=== PATIENT | female | born 1945 | race Caucasian/White ===

== ENCOUNTER 2016-06-18 07:24 | Emergency (ER) | payer MEDICARE, BC ==
[2016-06-18 07:37] VITALS: BP 127/82
--- NOTE | 2016-06-18 08:11 | UC ---
Lower Extremity/Ankle HPI - HPI Summary HPI Summary: The patient comes in today for: 1. Ellinger right foot pain: Onset: 1 week. Palliative/provocative: Walking makes it worse. Standing makes it worse also. Quality: Ache. Region: Medial superior foot. Severity: 6/10 Time: Comes and goes. Associated symptoms: "I do a lot of walking (5-7 miles a day on average)." Previous treatment: None except ice last night. * - History of Current Complaint Chief Complaint: UCLowerExtremity Stated Complaint: FOOT COMPLAINT Time Seen by Provider: 06/18/16 08:06 ?: No - Allergies/Home Medications Allergies/Adverse Reactions: Allergies Allergy/AdvReac Type Severity Reaction Status Date / Time Penicillins Allergy Intermediate Rash Verified 06/18/16 07:28 Codeine Allergy Vomiting Verified 06/18/16 07:28 PMH/Surg Hx/FS Hx/Imm Hx Previously Healthy: No - uterine Endocrine History Of: Denies: Diabetes, Thyroid Disease, Hyperthyroidism, Hypothyroidism, Dyslipidemia Cardiovascular History Of: Denies: Cardiac Disorders, Hypertension, Pacemaker/ICD, Myocardial Infarction , Congestive Heart Failure, Atrial Fibrillation, Deep Vein Thrombosis, Bleeding Disorders Respiratory History Of: Denies: COPD, Asthma, Bronchitis, Pneumonia, Pulmonary Embolism GI/ History Of: Denies: Gastroesophageal Reflux, Ulcer, Gastrointestinal Bleed, Gall Bladder Disease, Kidney Stones, Diverticulitis, Renal Disease, Urosepsis Neurological History Of: Denies: TIA, CVA, Dementia, Seizures, Migraine Psychological History Of: Reports: Depression Denies: Anxiety, Bipolar Disorder, Schizophrenia, Post Traumatic Stress Disorder Cancer History Of: Denies: Lung Cancer, Colorectal Cancer, Breast Cancer, Prostate Cancer, Cervical Cancer Other History Of: Negative For: HIV, Hepatitis B, Hepatitis C, Anticoagulant Therapy - Surgical History Surgical History: Yes Surgery Procedure, Year, and Place: Hysterectomy, Appendectomy, Umbilical hernia , Ovarian cyst, Right Ankle Surgery - Family History Known Family History: Positive: Cardiac Disease Negative: Hypertension - Social History Occupation: Employed Full-time Alcohol Use: Daily Alcohol Amount: glass of wine Substance Use Type: None Smoking Status (MU): Never Smoked Tobacco - Immunization History Most Recent Influenza Vaccination: [id number] Season Review of Systems Constitutional: Negative Skin: Negative Eyes: Negative ENT: Negative Respiratory: Negative Cardiovascular: Negative Gastrointestinal: Negative Genitourinary: Negative Musculoskeletal: Arthralgia, Myalgia All Other Systems Reviewed And Are Negative: Yes Physical Exam Triage Information Reviewed: Yes Appearance: Well-Appearing, No Pain Distress, Well-Nourished Vital Signs: Initial Vital Signs Temp 99.2 F 06/18/16 07:30 Pulse 76 06/18/16 07:30 Resp 18 06/18/16 07:30 BP 127/82 06/18/16 07:30 Pulse Ox 98 06/18/16 07:30 Vital Signs Reviewed: Yes Eyes: Positive: Conjunctiva Clear. Negative: Discharge ENT: Positive: Hearing grossly normal. Negative: Pharyngeal erythema, Nasal congestion, Nasal drainage, TM bulging, TM dull, TM red, Tonsillar swelling, Tonsillar exudate Dental: Negative: Gross Decay/Caries @, Dental Fracture @ Neck: Positive: Supple, Nontender, No Lymphadenopathy. Negative: Nuchal Rigidity Respiratory: Positive: Lungs clear, No respiratory distress, No accessory muscle use. Negative: Crackles, Wheezing Cardiovascular: Positive: RRR, No Murmur Abdomen Description: Positive: Nontender, No Organomegaly, Soft. Negative: Distended, Guarding Musculoskeletal: Positive: Strength Intact, ROM Intact, Other: - There is no redness, ecchymosis, or swelling of the dorsum of the foot where she states she has the most pain. However, she is focally tender on the tibialis tendon ( right foot) with palpation. Neurological: Positive: Alert, Muscle Tone Normal Psychological: Positive: Age Appropriate Behavior, Consolable Skin: Negative: rashes, breakdown Diagnostics - Radiology No standard instances Xray Interpretation: No Acute Changes Radiology Interpretation Completed By: Radiologist Lower Extremity Course/Dx - Course Course Of Treatment: Patient told of her x-ray results and treatment options. - Differential Dx/Diagnosis Differential Diagnosis/HQI/PQRI: Bursitis, Cellulitis, Gout Provider Diagnoses: Tibialis anterior tendonitis (right foot). Discharge - Discharge Plan Condition: Stable Disposition: HOME Patient Education Materials: Tendinitis (ED) Referrals: Cali Kinsey MD [Primary Care Provider] - 1 Week (Please see your primary care provider in a week to see how well you are doing. If you get worse, please be seen sooner in the ER or through us.)
[2016-06-18] MEDS ORDERED: Naproxen TAB* 250 MG PO ONE (08:55)
--- NOTE | 2016-06-18 08:57 | RAD ---
INDICATION: Right foot pain with walking COMPARISON: None TECHNIQUE: AP, lateral, and oblique views were obtained. FINDINGS: There is moderate first MTP joint osteoarthritis with a mild hallux valgus deformity. There are no additional significant osteoarthritic changes. The joint spaces and soft tissues are otherwise normal. IMPRESSION: MODERATE FIRST MTP JOINT OSTEOARTHRITIS WITH HALLUX VALGUS DEFORMITY.
--- NOTE | 2016-06-18 08:58 | RAD ---
INDICATION: Medial right ankle pain with walking COMPARISON: None TECHNIQUE: AP, lateral, and oblique views were obtained. FINDINGS: There is no acute fracture. Ankle mortise is intact. The soft tissues are normal. IMPRESSION: NO ACUTE BONY FINDINGS.
== END 2016-06-18 09:03 | disposition home or self-care (01) ==
LOC: UCEAST 07:24
DX: M76.821 Posterior tibial tendinitis, right leg (principal); Z88.0 Allergy status to penicillin; Z88.5 Allergy status to narcotic agent
CPT/HCPCS: 99212; A9270-GY; G0463

== ENCOUNTER 2017-02-27 10:11 | Emergency (ER) | payer MEDICARE, BC ==
[2017-02-27 10:24] VITALS: BP 117/80
--- NOTE | 2017-02-27 11:36 | RAD ---
INDICATION: Epigastric pain COMPARISON: Abdomen April 06, 2016 TECHNIQUE: Erect and supine views of the abdomen are submitted. FINDINGS: Bones: There are no acute bony findings. Soft tissues: The soft tissues appear normal. The psoas margins are sharp. Bowel gas pattern: Normal. There is no subdiaphragmatic free air Calcifications: There are no abnormal calcifications. Other: None IMPRESSION: NO ACUTE DIAGNOSTIC FINDINGS.
--- NOTE | 2017-02-27 23:27 | UC ---
Rory Stern Thomas, scribed for [facility] MD on 02/27/17 at 1045 . Abdominal Pain Female HPI - HPI Summary HPI Summary: In Room Note: The patient is a 71 year old female presenting to Urgent Care complaining of pain that localizes to the LLQ abdomen on deep palpation. This pain returned three days ago. In the past few weeks, she has been dealing with a pain that has been present in her lower abdomen, her epigastric region, and her back. Today, the pain is localized to underneath ribs 10-12 on the left anterior axillary line. She points to her left mid quadrant describing where the pain was yesterday. It also radiates to the back. In the ED, the patient additionally complains of fatigue and a foul taste in her mouth. Patient denies CP, SOB, palpitations, nausea, vomiting, diarrhea, dysuria, gait disruption, visual disruption, sinus pain, and dizziness. She was recently diagnosed with a UTI and finished a course of Bactrim five days ago; however, the pain worsened and now starts to radiate to her back. MD Note: VSS, afebrile, Pulse Ox 100. 3/10 LLQ abd pain. Non-smoker. S/p hysterectomy, appendectomy, umbilical hernia, ovarian cyst. Visit history significant for negative chest x-ray and abdominal x-ray in March 2016. More recently normal renal ultrasound and chest x-ray four days ago. Nurses Note: she had been having left side abd pain. more in LLQ but at times to LUQ. Had been Dx w/ UTI. Finished abx (Bactrim) and pain worsened and started to radiate to back. Had had an US of kidneys. Tried to get results. states she feels even worse today. Just does not feel well and the pain persists. - History of Current Complaint Chief Complaint: UCAbdominalPain Stated Complaint: ABD PAIN Time Seen by Provider: 02/27/17 10:35 Hx Obtained From: Patient Onset/Duration: Lasting Days - 3, Still Present Timing: Constant Severity Currently: Moderate Location: Discrete At: LLQ Radiates: Yes Radiates to: Back Aggravating Factor(s): Nothing Alleviating Factor(s): Nothing Associated Signs and Symptoms: Positive: Other: - Abd pain, fatigue, foul taste in mouth; NEGATIVE: CP, SOB, palpitations, nausea, vomiting, diarrhea, dysuria, gait disruption, visual disruption, sinus pain, and dizziness. Allergies/Adverse Reactions: Allergies Allergy/AdvReac Type Severity Reaction Status Date / Time Penicillins Allergy Intermediate Rash Verified 02/27/17 10:23 Codeine Allergy Vomiting Verified 02/27/17 10:23 Home Medications: Home Medications Lactobacillus [Probiotic] 1 cap PO DAILY 02/27/17 [History Confirmed 02/27/17] Mirtazapine TAB* [Remeron TAB*] 15 mg PO BEDTIME 02/27/17 [History Confirmed ] buPROPion SR TAB* [Wellbutrin SR TAB*] 100 mg PO DAILY 02/27/17 [History Confirmed 02/27/17] PMH/Surg Hx/FS Hx/Imm Hx Previously Healthy: No - NEGATIVE: HTN, DM Psychological History: Depression Other History Of: Negative For: HIV, Hepatitis B, Hepatitis C, Anticoagulant Therapy - Surgical History Surgical History: Yes Surgery Procedure, Year, and Place: Hysterectomy, Appendectomy, Umbilical hernia , Ovarian cyst, Right Ankle Surgery - Family History Known Family History: Positive: Cardiac Disease Negative: Hypertension - Social History Occupation: Employed Part-time, Retired Alcohol Use: Daily Alcohol Amount: glass of wine Substance Use Type: None Smoking Status (MU): Never Smoked Tobacco - Immunization History Most Recent Influenza Vaccination: [id number] Season Review of Systems Constitutional: Fatigue ENT: Other - Bad taste in mouth Gastrointestinal: Abdominal Pain Is Patient Immunocompromised?: No All Other Systems Reviewed And Are Negative: Yes - Comments Additional Review of Systems Comments: A 12 point review of systems was completed and significantly positive for: abdominal pain, fatigue, foul taste in mouth. The remainder of the review was negative except as stated above in the HPI. Physical Exam Triage Information Reviewed: Yes Vital Signs: Initial Vital Signs Temp 98.9 F 02/27/17 10:17 Pulse 89 02/27/17 10:17 Resp 16 02/27/17 10:17 BP 117/80 02/27/17 10:17 Pulse Ox 100 02/27/17 10:17 Vital Signs Reviewed: Yes - Additional Comments Appearance: The patient is well-appearing, is in no pain distress, and is well- nourished. Eyes: Conjunctiva are clear. ENT: The hearing is grossly normal, the pharynx is normal, and the TMs are normal. There is no muffled or hoarse voice. Neck: The neck is supple and nontender. Respiratory: The chest is nontender. The lungs are clear, there are normal breath sounds, and there is no respiratory distress. Cardiovascular: Heart is regular rate and rhythm. There is no murmur. Abdomen: The abdomen is soft. Today, the pain is localized to underneath the patients ribs 10-12 on the left anterior axillary line. She points to her left mid quadrant describing where the pain was yesterday. Bowel sounds are present and normal. Percussion of the RUQ radiates into the LUQ. Percussion under the left ribs creates pain. Percussion of the LLQ creates discomfort that radiates to her LUQ. There is discomfort in the LLQ with deep palpation. The LUQ is tympanitic to percussion. There is no organomegaly. Back: There is no CVA tenderness. Bowel sounds: present Musculoskeletal: Strength is intact. The patient moves all extremities. Neurological: The patient is alert. Psychological: The patient displays age appropriate behavior Skin: Negative for rashes. Diagnostics - Radiology XR Abdomen Xray Interpretation: No Acute Changes - No acute diagnostic findings. Dr. Roth has reviewed this report. Radiology Interpretation Completed By: Radiologist Abd Pain Female Course/Dx - Course Course Of Treatment: Urinalysis is negative for infection. Abdominal film negative for free air. I discussed with the patient at length about the various tests and the possibility of diverticulitis. For full diagnosed, she needed to be evaluated in the ED. She chose to go to the ED by private care. Vital signs are stable. She was in no significant pain when she left convenient care. Normal BP reading and no follow-up instructions required. Medications have been included in the original chart and reviewed. - Differential Dx/Diagnosis Differential Diagnosis: Other - LLQ pain: unclear etiology, possibly diverticulitis. Provider Diagnoses: LLQ Pain, possibly diverticulitis Discharge - Discharge Plan Condition: Stable Disposition: TRANS HIGHER L OF CARE FAC Patient Education Materials: Diverticulitis (ED) Referrals: Cali Kinsey MD [Primary Care Provider] - Additional Instructions: Thank you for helping us improve patient care by filling out the My Point Survey. WE DISCUSSED: YOU MAY HAVE DIVERTICULITIS. IT'S HARD TO TELL AT THIS POINT. GO TO ED FOR FURTHER EVALUATION. PLEASE SEEK CARE AT THE EMERGENCY DEPARTMENT IF SYMPTOMS WORSEN OR IF NEW SYMPTOMS DEVELOP. The documentation as recorded by the Rory denny Thomas accurately reflects the service I personally performed and the decisions made by me, Keyon Roth MD.
== END 2017-02-27 11:56 | disposition short-term general hospital (02) ==
LOC: UCEAST 10:11
DX: R10.32 Left lower quadrant pain (principal); Z88.5 Allergy status to narcotic agent; Z88.0 Allergy status to penicillin
CPT/HCPCS: 74020; 81003; 99212; G0463

== ENCOUNTER 2017-02-27 12:14 | Emergency (ER) | payer MEDICARE, BC ==
[2017-02-27 14:17] LABS: ABS Basophils 0 10^3/ul (0-0.2); ABS Eosinophils 0.1 10^3/ul (0-0.6); ABS Monocytes 0.4 10^3/ul (0-0.8); ABS Neutrophils 2.6 10^3/ul (1.5-7.7); ABS Nucleated RBC 0 10^3/ul; Eosinophil % 1.2 % (0-6); Hematocrit 40 % (35-47); Hemoglobin 13.6 g/dl (12.0-16.0); Lymphocyte % 39.1 % (25-47); Mean Corpuscular HGB Conc 34 g/dl (31-36); Mean Corpuscular Hemoglobin 31 pg (27-31); Mean Corpuscular Volume 93 fL (80-97); Mean Platelet Volume 7 um3 (7.4-10.4); Nucleated Red Blood Cells % 0; Platelet Count 270 10^3/ul (150-450); Red Blood Count 4.33 10^6/ul (4.0-5.4); Red Cell Distribution Width 13 % (10.5-15); White Blood Count 5.1 10^3/ul (3.5-10.8)
[2017-02-27] MEDS ORDERED: Iohexol 300* (CONTRAST) 10 ML SDV IV ONE (15:27)
--- NOTE | 2017-02-27 16:03 | RAD ---
INDICATION: Epigastric pain COMPARISON: Abdominal series same date; renal sonogram February 23, 2017; CT abdomen pelvis December 21, 2008 TECHNIQUE: Axial source images were obtained from the hemidiaphragms to the symphysis pubis following administration of oral and intravenous contrast. 64 mL Omnipaque 300 was utilized. Coronal and sagittal reconstructed images were acquired. Lung bases: The lung bases are clear. Liver: The liver is normal in size. There are no new masses. There is a splenic granuloma and there is a centimeter right hepatic cyst. The cyst appears smaller. There is no ductal dilatation. Gallbladder: There are no calcified gallstones. There is no evidence of wall thickening or pericholecystic fluid. Spleen: The spleen is normal in size. There are no masses. Pancreas: There is no new pancreatic mass or ductal dilatation. There is a cyst at the junction of the pancreatic head and body measuring 1.3 x 1.2 cm, unchanged. Adrenal glands: There is no evidence of adrenal mass. Kidneys: The kidneys are normal in size and position. There are prompt nephrograms and there is prompt excretion bilaterally. There are no renal parenchymal masses. There is no evidence of nephrolithiasis. Adenopathy: There is no evidence of adenopathy by size criteria. Fluid collections: There are no free or localized fluid collections. Vessels:There are no significant atherosclerotic changes involving the aorta. There is no focal aneurysm. The iliac vessels are normal in caliber. The IVC appears normal. GI tract: There are no acute CT bowel findings. There is no obstruction. The stomach and small bowel appear normal. The lower GI tract is normal. There is moderate stool. There is appendectomy by surgical history. Pelvic organs: There is hysterectomy. There is no adnexal mass Bladder: There are no bladder masses. Abdominal and pelvic soft tissues: The extraperitoneal abdominal and pelvic soft tissues appear normal.. Osseous structures: There are no acute osseous findings. There is chronic L5 spondylolysis with a grade 1-2 anterolisthesis Other: None IMPRESSION: NO ACUTE CT FINDINGS. NO MASS OR INFLAMMATORY CHANGES . CHRONIC L5 SPONDYLOLYSIS WITH ANTEROLISTHESIS
[2017-02-27 16:40] VITALS: BP 123/79
--- NOTE | 2017-03-18 17:46 | ED ---
Yuly Stern Gabriel, scribed for Aurelio Brito MD on 02/27/17 at 1316 . Abdominal Pain/Female - HPI Summary HPI Summary: This patient is a 71 year old F presenting to [facility] with a chief complaint of left sided ABD pain since over a week ago. The patient rates the achy pain 5/10 in severity and radiating into her ribs. Patient reports a bad taste in her mouth. Patient denies fever, chills, trouble with BM, hematuria, nausea, vomiting, and diarrhea. Patient denies any pain relief with a BM. Patient was recently seen at PCP and Dx with UTI, she has finished her Abx and still has ABD pain. She was seen at this morning and they referred her here for further imagining. - History of Current Complaint Chief Complaint: EDAbdPain Stated Complaint: CAT SCAN-CC TRANSFER Hx Obtained From: Patient Onset/Duration: Lasting Weeks - 1, Still Present Timing: Constant Severity Initially: Moderate Severity Currently: Moderate Pain Intensity: 5 Pain Scale Used: 0-10 Numeric Location: Diffuse Radiates: Yes Radiates to: Other - ribs Associated Signs and Symptoms: Positive: Negative - fever, chills, trouble with BM, hematuria, nausea, vomiting, and diarrhea., Other: - bad taste in mouth Allergies/Adverse Reactions: Allergies Allergy/AdvReac Type Severity Reaction Status Date / Time Penicillins Allergy Intermediate Rash Verified 02/27/17 10:23 Codeine Allergy Vomiting Verified 02/27/17 10:23 PMH/Surg Hx/FS Hx/Imm Hx Previously Healthy: No Endocrine/Hematology History: Denies: Hx Anticoagulant Therapy, Hx Diabetes, Hx Thyroid Disease Cardiovascular History: Denies: Hx Congestive Heart Failure, Hx Deep Vein Thrombosis, Hx Hypertension , Hx Myocardial Infarction, Hx Pacemaker/ICD Respiratory History: Denies: Hx Asthma, Hx Chronic Obstructive Pulmonary Disease (COPD), Hx Lung Cancer, Hx Pneumonia, Hx Pulmonary Embolism GI History: Denies: Hx Gall Bladder Disease, Hx Gastrointestinal Bleed, Hx Ulcer, Hx Urosepsis, Other GI Disorders History: Denies: Hx Dialysis, Hx Kidney Stones, Hx Renal Disease Musculoskeletal History: Denies: Hx Osteoporosis Neurological History: Denies: Hx Dementia, Hx Migraine, Hx Seizures, Hx Transient Ischemic Attacks (TIA) Psychiatric History: Reports: Hx Depression Denies: Hx Anxiety, Hx Schizophrenia, Hx Bipolar Disorder - Cancer History Cancer Type, Location and Year: Uterine CA 2002 Hx Chemotherapy: No Hx Radiation Therapy: No - Surgical History Surgery Procedure, Year, and Place: Hysterectomy, Appendectomy, Umbilical hernia , Ovarian cyst, Right Ankle Surgery Infectious Disease History: No Infectious Disease History: Reports: Hx Shingles Denies: Hx Clostridium Difficile, Hx Hepatitis, Hx Human Immunodeficiency Virus (HIV), Hx of Known/Suspected MRSA, Traveled Outside the [place] in Last 30 Days - Family History Known Family History: Positive: Cardiac Disease Negative: Hypertension - Social History Alcohol Use: Daily Alcohol Amount: glass of wine Substance Use Type: Reports: None Smoking Status (MU): Never Smoked Tobacco Review of Systems Negative: Fever, Chills Positive: Other - bad taste in mouth Gastrointestinal: Negative - trouble with BM Positive: Abdominal Pain. Negative: Vomiting, Diarrhea, Nausea Negative: hematuria All Other Systems Reviewed And Are Negative: Yes Physical Exam - Summary Physical Exam Summary: Appearance: Well-appearing, Thin appearing, NAD Skin: Warm, Dry, No rash Eyes: Normal, PERRL, EOMI, sclera anicteric ENT: Normal Neck: Supple, nontender Respiratory: Clear to auscultation Cardiovascular: S1, S2, no murmur, no rub, no gallop Abdomen: Soft, no organomegaly. Patient is tender in the left side of her abdomen especially in the midline and upper and lower ABD, no masses palpated Bowel sounds: Present Musculoskeletal: Normal, Strength/ROM Intact, no edema, pulses symmetrical Neurological: Normal, A&Ox3, cranial nerves II-XII WNL, follows commands, gait not tested, sensation intact to pin and light touch Psychiatric: affect normal, behavior appropriate, dressed appropriately, judgment intact Triage Information Reviewed: Yes Vital Signs On Initial Exam: Initial Vitals Temp Pulse Resp BP Pulse Ox 97.6 F 67 14 130/79 99 02/27/17 12:15 02/27/17 12:15 02/27/17 12:15 02/27/17 12:15 02/27/17 12:15 Vital Signs Reviewed: Yes Diagnostics - Vital Signs Vital Signs Temp Pulse Resp BP Pulse Ox 02/27/17 12:15 97.6 F 67 14 130/79 99 - Laboratory Result Diagrams: 02/27/17 13:50 02/27/17 13:50 Lab Statement: Any lab studies that have been ordered have been reviewed, and results considered in the medical decision making process. - CT ABD/ Pelvis CT CT Interpretation Completed By: Radiologist - NO ACUTE CT FINDINGS. NO MASS OR INFLAMMATORY CHANGES . CHRONIC L5 SPONDYLOLYSIS WITH ANTEROLISTHESIS ED physician has reviewed this radiology report. Abdominal Pain Fem Course/Dx - Course Course Of Treatment: This patient is a 71 year old F presenting to [facility] with a chief complaint of left sided ABD pain since over a week ago. The patient rates the achy pain 5/10 in severity and radiating into her ribs. Patient reports bad taste in mouth. Patient denies fever, chills, trouble with BM, hematuria, nausea , vomiting, and diarrhea. Patient denies any pain relief with a BM. Patient was recently seen at PCP and Dx with UTI, she has finished her Abx and still has ABD pain. She was seen at this morning and they referred her here for further imagining. CT ABD/Pelvis reveals, per radiologist, NO ACUTE CT FINDINGS. NO MASS OR INFLAMMATORY CHANGES . CHRONIC L5. SPONDYLOLYSIS WITH ANTEROLISTHESIS. ED physician has reviewed this radiology report. In the ED course the patient was given contrast for CT. Patient will be discharged with follow up from Dr. Kinsey. The patient is agreeable with this plan. - Diagnoses Provider Diagnoses: Irritable bowel syndrome (IBS) Discharge - Discharge Plan Condition: Good Disposition: HOME Patient Education Materials: Irritable Bowel Syndrome (ED) Referrals: Cali Kinsey MD [Primary Care Provider] - The documentation as recorded by the Yuly denny Gabriel accurately reflects the service I personally performed and the decisions made by me, Aurelio Brito MD.
== END 2017-02-27 16:45 | disposition home or self-care (01) ==
LOC: ED 12:14
DX: K58.9 Irritable bowel syndrome, unspecified (principal); R10.9 Unspecified abdominal pain; R31.9 Hematuria, unspecified; R11.2 Nausea with vomiting, unspecified; R19.7 Diarrhea, unspecified
CPT/HCPCS: 36415; 74177; 80053; 85025; 99282; Q9967

== ENCOUNTER 2018-04-28 10:32 | Emergency (ER) | payer MEDICARE, OTHER ==
[2018-04-28 12:48] VITALS: BP 135/81
--- NOTE | 2018-04-28 13:17 | UC ---
Back Pain HPI - HPI Summary HPI Summary: 72-year-old woman comes in with a chief complaint of left flank pain. Started couple of hours ago suddenly. She is not doing any strenuous activity that started. She has similar episode yesterday that lasted couple of hours and went away on its own. Denies any abdominal pain dysuria fevers or chills. At its worst pains about a 6 out of 10. It's less now. It does get worse with twisting turning bending. Denies any shortness of breath cough chest congestion or any respiratory symptoms. No UTI symptoms no dysuria did not see any blood in her urine. Normal bowel movements. Patient has had a hysterectomy in the past and also has her gallbladder out. No complaint of any rash. - History of Current Complaint Chief Complaint: UCAbdominalPain Stated Complaint: PAIN ON SIDE Time Seen by Provider: 04/28/18 12:51 Pain Intensity: 5 - Allergies/Home Medications Allergies/Adverse Reactions: Allergies Allergy/AdvReac Type Severity Reaction Status Date / Time codeine Allergy Vomiting Verified 04/28/18 12:44 Penicillins Allergy Rash Verified 04/28/18 12:44 PMH/Surg Hx/FS Hx/Imm Hx Previously Healthy: Yes Other History Of: Negative For: HIV, Hepatitis B, Hepatitis C, Anticoagulant Therapy - Surgical History Surgical History: Yes Surgery Procedure, Year, and Place: Hysterectomy, Appendectomy, Umbilical hernia , Ovarian cyst, Right Ankle Surgery - Family History Known Family History: Positive: Cardiac Disease Negative: Hypertension - Social History Alcohol Use: Daily Alcohol Amount: glass of wine Substance Use Type: None Smoking Status (MU): Never Smoked Tobacco - Immunization History Most Recent Influenza Vaccination: 4962-9310 Season Review of Systems All Other Systems Reviewed And Are Negative: Yes Constitutional: Positive: Negative Skin: Positive: Negative Eyes: Positive: Negative ENT: Positive: Negative Respiratory: Positive: Negative Cardiovascular: Positive: Negative Gastrointestinal: Positive: Negative Genitourinary: Positive: Negative Motor: Positive: Negative Neurovascular: Positive: Negative Musculoskeletal: Positive: Other: - see hpi Neurological: Positive: Negative Psychological: Positive: Negative Is Patient Immunocompromised?: No Physical Exam Triage Information Reviewed: Yes Appearance: Well-Appearing, No Pain Distress, Well-Nourished Vital Signs: Initial Vital Signs Temp 98.7 F 04/28/18 12:39 Pulse 68 04/28/18 12:39 Resp 16 04/28/18 12:39 BP 135/81 04/28/18 12:39 Pulse Ox 100 04/28/18 12:39 Vital Signs Reviewed: Yes Eye Exam: Normal Eyes: Positive: Conjunctiva Clear Neck exam: Normal Neck: Positive: Supple Respiratory: Positive: Lungs clear, Normal breath sounds, No respiratory distress Cardiovascular: Positive: RRR Abdomen Description: Positive: Soft, Bruit, CVA Tenderness (L). Negative: CVA Tenderness (R), Distended, Guarding Bowel Sounds: Positive: Present Musculoskeletal: Positive: Other: - Tender to palpation left posterior lower ribs/flank Neurological Exam: Normal Neurological: Positive: Alert, Muscle Tone Normal Psychological Exam: Normal Psychological: Positive: Age Appropriate Behavior Skin Exam: Normal Back Pain Course/Dx - Course Course Of Treatment: Patient Name: MARIO NIEVES Medical Record#: [id number]. Ordering Physician: Reza Laguerre MD Acct.#: [id number]. : 1945 Age: 72 Sex: F Location: [facility]. Exam Date: 1303 ADM Status: REG ER. Order Information: CT ABD/PEL W/O. Accession Number: [id number]. CPT: 09597. Indication: Left flank pain. Comparison is made with previous exam dated February 27, 2017. CT of the abdomen and pelvis was performed without oral or IV contrast administration. Coronal and sagittal reconstructed images were obtained. The lung bases demonstrate no pleural fluid , nodules or masses. Heart is of normal size. without pericardial effusion. Liver is normal in size. No focal lesions or intrahepatic duct dilatation is noted. There. is calcification in the dome of the liver which is unchanged from prior exam. The. gallbladder demonstrates no calcified gallstones. Pancreas demonstrates no mass or. pancreatic duct dilatation although a cystic lesion is noted in the head of the pancreas. measuring up to 1.4 cm is noted. This is not significant change since previous exam. No. pancreatic duct dilatation is noted. No adrenal lesions are noted. The kidneys demonstrates no hydronephrosis although there is a calcification in the right. retroperitoneum measuring up to 2 mm in the region of the right ureter. Previous CT. demonstrates similar calcification and is unchanged. The left kidney demonstrates no hydronephrosis or hydroureter. Urinary bladder is. otherwise unremarkable. No dilated loops of bowel are noted. The colon is filled with. stool. No free fluid is identified. Degenerative disc disease in the lumbar spine is noted with grade 1 spondylolisthesis of. L5 on S1. IMPRESSION: No hydronephrosis in either kidney is identified. 2 mm calcification in the. right retroperitoneum is unchanged from February 27, 2017. 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 This is not significantly changed in size since previous exam. Further. follow-up is suggested. . <Electronically signed by Deanna Allen MD in OV> 04/28/18 [id number]. I discussed the CT report with the patient and also the urinalysis. The plan right now for the pain is ibuprofen as needed. Follow-up with her primary care doctor. Reevaluate sooner if worse. I discussed the pancreatic cyst with hematology oncology Dr. Hernandez. He recommended follow-up in his office with the patient. I discussed this with the patient and she'll be setting up an appointment for following the cyst. - Differential Dx/Diagnosis Provider Diagnosis: Flank pain, Pancreatic cyst Discharge - Sign-Out/Discharge Documenting (check all that apply): Patient Departure All imaging exams completed and their final reports reviewed: Yes - Discharge Plan Condition: Stable Disposition: HOME Patient Education Materials: Flank Pain (ED) Referrals: Cali Kinsey MD [Primary Care Provider] - Issac Hernandez MD [Medical Doctor] - Additional Instructions: FOLLOW UP WITH YOUR PRIMARY CARE DOCTOR IF NOT COMPLETELY IMPROVED. FOLLOW UP WITH DR HERNANDEZ FOR THE PANCREATIC CYST. GET RECHECKED FOR ANY WORSENING OF YOUR CONDITION; PAIN, FEVER, YOU FEEL ILL OR QUESTIONS OR CONCERNS. - Billing Disposition and Condition Condition: STABLE Disposition: Home
== END 2018-04-28 14:30 | disposition home or self-care (01) ==
LOC: UCEAST 10:32
DX: R10.9 Unspecified abdominal pain (principal); K86.2 Cyst of pancreas; Z88.0 Allergy status to penicillin; Z88.5 Allergy status to narcotic agent; Z90.710 Acquired absence of both cervix and uterus
CPT/HCPCS: 74176; 81003; 99211; G0463

== ENCOUNTER 2019-05-11 07:02 | Emergency (ER) | payer MEDICARE, OTHER ==
--- OUTSIDE RECORDS SUMMARY | 2019-05-11 07:07 | XMS REPORT | Continuity of Care Document ---
:1945 External Reference #:[id number] Author Name Gricelda Luz M.D. (transmitted by agent of provider Katrina Paredes) Address [address] [place] [id number] Care Team Providers Name Role Phone Cali Kinsey MD - Endocrinology, Care Team Information Dj Instructor Diabetes & Metabolism Problems Active Problems Provider Date Degeneration of lumbar intervertebral disc Onset: 06/22/2013 Anxiety Onset: 05/24/2013 Generalized anxiety disorder Onset: 05/24/2013 Insomnia Onset: 05/24/2013 Spinal stenosis Onset: 05/24/2013 Osteopenia Onset: 05/24/2013 Malignant neoplasm of uterus Onset: 03/15/2002 Social History Type Date Description Comments Sex Unknown ETOH Use Occasionally consumes alcohol Tobacco Use Start: Unknown Patient has never smoked Smoking Status Reviewed: 03/29/19 Patient has never smoked Exercise Type/Frequency Exercises regularly Allergies, Adverse Reactions, Alerts Active Allergies Reaction Severity Comments Date Codeine Nausea and Vomiting Moderate 11/03/2013 Penicillin rash Severe 11/03/2013 Medications Active Medications SIG Qnty Indications Ordering Provider Date Bupropion HCL ER (SR) 1 by mouth twice Unknown a day 100mg Tablets ER 12HR Mirtazapine take one tablet Unknown 15mg Tablets by mouth every Dispers night at bedtime Multiple Vitamin 1 by mouth every Unknown Tablets day Probiotic Daily qd Unknown Capsules Vitamin D-3 1 by mouth every Unknown 1000Unit day Capsules Immunizations Description No Information Available Vital Signs Date Vital Result Comment 03/29/2019 3:30pm Height 61 inches 5'1" Weight 106.00 lb Heart Rate 86 /min BP Systolic 146 mmHg BP Diastolic 86 mmHg Respiratory Rate 18 /min O2 % BldC Oximetry 95 % BMI (Body Mass Index) 20.0 kg/m2 11/06/2013 3:16pm Height 62 inches 5'2" Weight 105.00 lb Heart Rate 68 /min BP Systolic Sitting 120 mmHg BP Diastolic Sitting 70 mmHg Respiratory Rate 12 /min Body Temperature 98.7 F BMI (Body Mass Index) 19.2 kg/m2 Results Description No Information Available Procedures Date Code Description Status 03/29/2019 90926 Inject/Drain Joint/Bursa Small W/O US Completed Medical Devices Description No Information Available Encounters Description No Information Available Assessments Date Code Description Provider 03/29/2019 M18.11 Unilateral primary osteoarthritis of first Gricelda Luz M.D. carpometacarpal joint, right hand Plan of Treatment 03/29/2019 - Gricelda Luz M.D.M18.11 Unilateral primary osteoarthritis of first carpometacarpal joint, right handNew Therapy:Physical TherapyFollow up: Follow up: As needed Functional Status Description No Information Available Mental Status Description No Information Available Referrals Description No Information Available
[2019-05-11 07:22] VITALS: BP 142/85
--- NOTE | 2019-05-11 07:36 | UC ---
General HPI - HPI Summary HPI Summary: Here with left foot pain - States she has arthritis and noticed she started having b/l foot pain. She went to [facility] two weeks ago and just got back yesterday. 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 She states her left foot got worse once she arrived - she was doing a lot of walking and on cobblestone. Denies and falls and inciting event. States she has been taking ibuprofen without much relief. Pain has gotten worse with time and has travelled up to her ankle and lower leg. No calf pain or leg pain. No SOB. Meds: REviewed - History of Current Complaint Chief Complaint: UCLowerExtremity Stated Complaint: L FOOT PAIN Time Seen by Provider: 05/11/19 07:13 Pain Intensity: 7 - Allergy/Home Medications Allergies/Adverse Reactions: Allergies Allergy/AdvReac Type Severity Reaction Status Date / Time codeine Allergy Vomiting Verified 05/11/19 07:10 Penicillins Allergy Rash Verified 05/11/19 07:10 Home Medications: Home Medications Mirtazapine TAB* [Remeron TAB*] 15 mg PO BEDTIME 02/27/17 [History Confirmed ] buPROPion SR TAB* [Wellbutrin SR TAB*] 100 mg PO DAILY 02/27/17 [History Confirmed 05/11/19] PMH/Surg Hx/FS Hx/Imm Hx Other History Of: Negative For: HIV, Hepatitis B, Hepatitis C, Anticoagulant Therapy - Surgical History Surgical History: Yes Surgery Procedure, Year, and Place: Hysterectomy, Appendectomy, Umbilical hernia , Ovarian cyst, Right Ankle Surgery - Family History Known Family History: Positive: Cardiac Disease Negative: Hypertension - Social History Alcohol Use: Daily Alcohol Amount: glass of wine Substance Use Type: None Smoking Status (MU): Never Smoked Tobacco - Immunization History Most Recent Influenza Vaccination: 6338-1405 Season Review of Systems All Other Systems Reviewed And Are Negative: Yes Musculoskeletal: Positive: Decreased ROM Physical Exam Triage Information Reviewed: Yes Appearance: Well-Appearing Vital Signs: Initial Vital Signs Temp 98.0 F 05/11/19 07:11 Pulse 68 05/11/19 07:11 Resp 18 05/11/19 07:11 BP 142/85 05/11/19 07:11 Pulse Ox 98 05/11/19 07:11 Vital Signs Reviewed: Yes Eyes: Positive: Conjunctiva Clear Musculoskeletal: Positive: Other: - right foot - good pulses and ROM. Pain with flexion. No pain with supination or pronation. She has pain at dorsal surface of hindfoot with flexion Diagnostics - Radiology left foot Radiology Interpretation Completed By: Radiologist Summary of Radiographic Findings: hallux vagus deformity, mid-mod osteoarthritis. No fracture Course/Dx - Course Course Of Treatment: This is a 73 yr old with left foot pain Foot xrays: left hallux vagus deformity, mil-mod OA Plan Continue tylenol 650 mg every 4-6 hours scheduled for pain, then ibuprofen as needed as directed Try CAM Boot as needed for comfort Follow up with Orthopedics Dr. Stout or Keyshawn Recommend physical therapy - Diagnoses Provider Diagnosis: Hallux valgus (acquired), left foot, Osteoarthritis Discharge ED - Sign-Out/Discharge Documenting (check all that apply): Patient Departure All imaging exams completed and their final reports reviewed: Yes - Discharge Plan Condition: Fair Disposition: HOME Patient Education Materials: Bunion (ED), Osteoarthritis (ED) Referrals: Cali Kinsey MD [Primary Care Provider] - Additional Instructions: Continue tylenol 650 mg every 4-6 hours scheduled for pain, then ibuprofen as needed as directed Try CAM Boot as needed for comfort Follow up with Orthopedics Dr. Stout or Keyshawn Recommend physical therapy - Billing Disposition and Condition Condition: FAIR Disposition: Home
== END 2019-05-11 08:30 | disposition home or self-care (01) ==
LOC: UCEAST 07:02
DX: M20.12 Hallux valgus (acquired), left foot (principal); M19.072 Primary osteoarthritis, left ankle and foot; Z88.5 Allergy status to narcotic agent; Z88.0 Allergy status to penicillin
CPT/HCPCS: 99212; G0463